=== PATIENT | male | born 1955 | race African-American/Black ===

== ENCOUNTER 2018-04-12 14:59 | Emergency (ER) | payer MEDICAID, MEDICARE ==
[~2018-04-12] VITALS: Ht 182.9 cm; Wt 73.0 kg
[2018-04-12] MEDS ORDERED: CEFTRIAXONE SODIUM 500 MG/VIAL IM ONE (18:45)
[2018-04-12 19:52] VITALS: BP 146/105
== END 2018-04-12 19:55 | disposition home or self-care (01) ==
LOC: ER 14:59
DX: L03.317 Cellulitis of buttock (principal); R00.0 Tachycardia, unspecified; I10 Essential (primary) hypertension; M19.90 Unspecified osteoarthritis, unspecified site; F17.210 Nicotine dependence, cigarettes, uncomplicated; F12.10 Cannabis abuse, uncomplicated; F14.10 Cocaine abuse, uncomplicated
CPT/HCPCS: 96372; 99283; J0696

== ENCOUNTER 2018-08-24 15:35 | Inpatient (IN) | payer MEDICARE, MEDICAID ==
[~2018-08-24] VITALS: Ht 188 cm; Wt 74.8 kg
[2018-08-24] MEDS ORDERED: ONDANSETRON HCL 4MG/2ML INJ IV STA (17:42)
[2018-08-24] MEDS ORDERED: KETOROLAC 30MG/ML VIAL IV STA (17:42)
[2018-08-24] MEDS ORDERED: SODIUM CHLORIDE 0.9% 1,000 ML IV ONE (17:42)
[2018-08-24] MEDS ORDERED: MORPHINE SULFATE 4 MG/ML CPJ (NOT FOR IM USE) IV STA (17:42)
[2018-08-24] MEDS ORDERED: VANCOMYCIN 1 G PREMIX 200 ML IV ONE (17:45)
[2018-08-24] MEDS ORDERED: PIPERACILLIN/TAZ 3.375G PREMIX 50 ML IV ONE (17:45)
[2018-08-24 18:32] LABS: BASOPHILS % 0.9 % (0.0-2.0); EOSINOPHILS % 0.7 % (0.0-5.0); HEMATOCRIT. 47.7 % (42.0-52.0); HEMOGLOBIN. 15.7 g/dL (14.0-18.0); LYMPHOCYTES % 23.9 % (20.0-50.0); MEAN CORPUSCULAR HEMOGLOBIN 33.1 pg (28.0-32.0); MEAN CORPUSCULAR VOLUME 100.7 fL (80.0-94.0); MEAN PLATELET VOLUME 8.1 fl (7.4-10.4); MONOCYTES % 7.9 % (2.0-8.0); NEUTROPHILS % 66.6 % (40.0-76.0); PLATELET 219 x1000/uL (130-400); RED BLOOD CELL COUNT 4.73 mill/uL (4.7-6.1); RED CELL DISTRIBUTION WIDTH 13.3 % (11.6-14.6)
[2018-08-24 18:37] LABS: CHLORIDE 103 mEq/L (98-107)
[2018-08-24 18:39] LABS: PARTIAL THROMBOPLASTIN TIME 29.2 sec (23.4-31.0); PROTHROMBIN TIME 10.7 sec (9.6-11.0)
[2018-08-24 18:41] LABS: ETHANOL BLOOD < 10 mg/dL
[2018-08-24 18:47] LABS: CREATINE KINASE 352 IU/L (39-308)
[2018-08-24 18:49] LABS: CREATINE KINASE MB FRACTION 7.6 ng/mL (0.5-3.6)
[2018-08-24] MEDS ORDERED: ONDANSETRON HCL 4MG/2ML INJ IV ONE (21:00)
[2018-08-24] MEDS ORDERED: MORPHINE SULFATE 4 MG/ML CPJ (NOT FOR IM USE) IV ONE (21:00)
[2018-08-24] MEDS ORDERED: IPRATROPIUM/ALBUTEROL 0.5-3(2.5)MG/3ML NEB INH PRN (22:00)
[2018-08-24] MEDS ORDERED: NA PHOS,M-B/NA PHOS,DI-BA ENEMA 118ML PR PRN (22:00)
[2018-08-24] MEDS ORDERED: LORAZEPAM 2MG/ML CPJ IV PRN (22:00)
[2018-08-24] MEDS ORDERED: MAGNESIUM/ALUMINUM HYDROXIDE/SIMETHICONE 30ML UDC PO PRN (22:00)
[2018-08-24] MEDS ORDERED: HYDRALAZINE 20MG/ML VIAL IV PRN (22:00)
[2018-08-24] MEDS ORDERED: CLONIDINE 0.1MG TABLET PO PRN (22:00)
[2018-08-24] MEDS ORDERED: VANCOMYCIN 1 G PREMIX 200 ML IV SCH ×3 (22:00→23:30)
[2018-08-24] MEDS ORDERED: DOCUSATE SODIUM 100MG CAPSULE PO PRN (22:00)
[2018-08-24] MEDS ORDERED: HYDROCODONE/ACETAMINOPHEN 10/325MG TABLET PO PRN (22:00)
[2018-08-24] MEDS ORDERED: GUAIFENESIN 200MG/10ML SUGAR FREE UDC PO PRN (22:00)
[2018-08-24] MEDS ORDERED: ACETAMINOPHEN 325MG TABLET PO PRN (22:00)
[2018-08-24] MEDS ORDERED: ONDANSETRON HCL 4MG/2ML INJ IV PRN (22:00)
[2018-08-24] MEDS ORDERED: DIPHENHYDRAMINE 50MG/ML VIAL IV PRN (22:00)
[2018-08-24 22:20] VITALS: BP 138/91
[2018-08-24] MEDS ORDERED: HYDRALAZINE 10 MG in SODIUM CHLORIDE 0.9% 49.5 ML IV PRN (22:30)
[2018-08-24] MEDS: HYDROMORPHONE HCL/PF 2MG/ML CPJ IV PRN (23:44)
[2018-08-24] MEDS: ENOXAPARIN 40MG/0.4ML SYR SUBCUT SCH (23:46)
[2018-08-25 00:52] LABS: CREATINE KINASE 256 IU/L (39-308)
[2018-08-25] MEDS: PIPERACILLIN/TAZ 3.375G PREMIX 50 ML IV SCH ×5 (01:01→23:57)
[2018-08-25 04:00] VITALS: BP 104/74
[2018-08-25] MEDS: HYDROMORPHONE HCL/PF 2MG/ML CPJ IV PRN ×8 (05:40→23:56)
[2018-08-25 06:53] LABS: HEMOGLOBIN. 14.5 g/dL (14.0-18.0); MEAN CORPUSCULAR HEMOGLOBIN 33.3 pg (28.0-32.0); MEAN CORPUSCULAR VOLUME 100.8 fL (80.0-94.0); MEAN PLATELET VOLUME 8.7 fl (7.4-10.4); PLATELET 196 x1000/uL (130-400); RED BLOOD CELL COUNT 4.36 mill/uL (4.7-6.1); RED CELL DISTRIBUTION WIDTH 13.1 % (11.6-14.6)
[2018-08-25 07:43] LABS: CHLORIDE 106 mEq/L (98-107)
[2018-08-25 07:52] LABS: CREATINE KINASE 227 IU/L (39-308)
[2018-08-25 07:55] LABS: CREATINE KINASE MB FRACTION 3.9 ng/mL (0.5-3.6)
[2018-08-25 08:00] VITALS: BP 117/75
[2018-08-25] MEDS: ASPIRIN 81MG EC TABLET PO SCH ×2 (09:06→09:42)
[2018-08-25] MEDS: VANCOMYCIN 750 MG PREMIX 150 ML IV SCH ×2 (09:32→17:10)
[2018-08-25 10:32] LABS: PLATELET ESTIMATE NORMAL
[2018-08-25 12:00] VITALS: BP 113/67
[2018-08-25] MEDS: SODIUM CHLORIDE 0.9% INJ 3ML FLUSH IVF SCH ×2 (13:53→20:37)
[2018-08-25 16:00] VITALS: BP 115/72
[2018-08-25 19:53] LABS: *AMPHETAMINES SCREEN URINE NEGATIVE (NEGATIVE)
[2018-08-25 19:54] LABS: *BARBITURATES SCREEN URINE NEGATIVE (NEGATIVE); *BENZODIAZEPINES SCREEN URINE NEGATIVE (NEGATIVE); *COCAINE SCREEN URINE NEGATIVE (NEGATIVE); METHADONE URINE SCREEN NEGATIVE (NEGATIVE); OPIATES URINE SCREEN PRESUMTIVE POSITIVE (NEGATIVE)
[2018-08-25 19:55] LABS: CANNABINOID URINE SCREEN PRESUMTIVE POSITIVE (NEGATIVE); PHENCYCLIDINE URINE SCREEN NEGATIVE (NEGATIVE)
[2018-08-25 20:00] VITALS: BP 150/83
[2018-08-25] MEDS: ENOXAPARIN 40MG/0.4ML SYR SUBCUT SCH (20:35)
[2018-08-26] VITALS: BP 142/78
[2018-08-26] MEDS: HYDROMORPHONE HCL/PF 2MG/ML CPJ IV PRN ×6 (03:29→22:12)
[2018-08-26 04:00] VITALS: BP 132/69
[2018-08-26] MEDS: SODIUM CHLORIDE 0.9% INJ 3ML FLUSH IVF SCH ×3 (05:40→21:34)
[2018-08-26] MEDS: PIPERACILLIN/TAZ 3.375G PREMIX 50 ML IV SCH ×4 (05:40→23:46)
[2018-08-26] MEDS: VANCOMYCIN 750 MG PREMIX 150 ML IV SCH ×2 (05:40→18:29)
[2018-08-26 08:28] VITALS: BP 111/71
[2018-08-26] MEDS: ASPIRIN 81MG EC TABLET PO SCH (09:38)
[2018-08-26 12:04] VITALS: BP 122/82
[2018-08-26 15:46] VITALS: BP 145/72
[2018-08-26 20:00] VITALS: BP 139/83
[2018-08-26] MEDS: ENOXAPARIN 40MG/0.4ML SYR SUBCUT SCH (21:24)
[2018-08-27] VITALS: BP 135/78
[2018-08-27 04:00] VITALS: BP 137/73
[2018-08-27] MEDS: PIPERACILLIN/TAZ 3.375G PREMIX 50 ML IV SCH ×3 (05:25→17:27)
[2018-08-27] MEDS: HYDROMORPHONE HCL/PF 2MG/ML CPJ IV PRN ×5 (05:26→22:07)
[2018-08-27] MEDS: SODIUM CHLORIDE 0.9% INJ 3ML FLUSH IVF SCH ×3 (06:02→22:11)
[2018-08-27] MEDS: VANCOMYCIN 750 MG PREMIX 150 ML IV SCH ×2 (06:06→18:29)
[2018-08-27 08:24] VITALS: BP 119/52
[2018-08-27] MEDS: ASPIRIN 81MG EC TABLET PO SCH (09:22)
[2018-08-27 11:44] VITALS: BP 136/86
[2018-08-27 16:08] VITALS: BP 139/82
[2018-08-27 20:00] VITALS: BP 145/85
[2018-08-27] MEDS: ENOXAPARIN 40MG/0.4ML SYR SUBCUT SCH (20:44)
[2018-08-28] VITALS: BP 129/75
[2018-08-28] MEDS: PIPERACILLIN/TAZ 3.375G PREMIX 50 ML IV SCH ×2 (00:14→05:41)
[2018-08-28] MEDS: HYDROMORPHONE HCL/PF 2MG/ML CPJ IV PRN ×3 (02:53→09:28)
[2018-08-28 04:00] VITALS: BP 106/69
[2018-08-28] MEDS: SODIUM CHLORIDE 0.9% INJ 3ML FLUSH IVF SCH (05:38)
[2018-08-28] MEDS: VANCOMYCIN 750 MG PREMIX 150 ML IV SCH (06:28)
[2018-08-28 07:35] LABS: CHLORIDE 104 mEq/L (98-107)
[2018-08-28 08:00] VITALS: BP 111/60
[2018-08-28] MEDS: ASPIRIN 81MG EC TABLET PO SCH (09:27)
[2018-08-28] MEDS ORDERED: LORAZEPAM 2MG/ML CPJ IM PRN (09:30)
[2018-08-28 10:44] VITALS: BP 125/70
== END 2018-08-28 10:47 | disposition home or self-care (01) | DRG 872 ==
LOC: ER 15:35 → 6EST 20:57 → ENRESERV 21:30
PROVIDERS: ADMIT Internal Medicine; ATTEND Internal Medicine
DX: A41.9 Sepsis, unspecified organism (principal); L03.115 Cellulitis of right lower limb; E87.2 Acidosis; I10 Essential (primary) hypertension; Z96.651 Presence of right artificial knee joint; Z59.0 Homelessness
CPT/HCPCS: 36415; 71045; 73590; 80048; 80202; 80305; 80320; 82550; 82553; 83605; 83880; 84145; 84484; 93970; 96374; 97161; 99285; J1170; J1650; J1885; J2270; J2405; J2543; J3370; J7030; J7050; G0480

== ENCOUNTER 2018-09-20 11:48 | Emergency (ER) | payer MEDICARE, MEDICAID ==
[~2018-09-20] VITALS: Ht 182.9 cm; Wt 77.0 kg
[2018-09-20] MEDS ORDERED: SODIUM CHLORIDE 0.9% 1,000 ML IV ONE (13:32)
[2018-09-20] MEDS ORDERED: ONDANSETRON HCL 4MG/2ML INJ IV STA (13:32)
[2018-09-20] MEDS ORDERED: MORPHINE SULFATE 4 MG/ML CPJ (NOT FOR IM USE) IV STA (13:32)
[2018-09-20 14:24] LABS: BASOPHILS % 0.6 % (0.0-2.0); EOSINOPHILS % 4.1 % (0.0-5.0); HEMATOCRIT. 41.1 % (42.0-52.0); HEMOGLOBIN. 13.5 g/dL (14.0-18.0); LYMPHOCYTES % 38.5 % (20.0-50.0); MEAN CORPUSCULAR HEMOGLOBIN 33.8 pg (28.0-32.0); MEAN CORPUSCULAR VOLUME 102.6 fL (80.0-94.0); MEAN PLATELET VOLUME 7.9 fl (7.4-10.4); MONOCYTES % 9.8 % (2.0-8.0); PLATELET 157 x1000/uL (130-400); RED CELL DISTRIBUTION WIDTH 14.3 % (11.6-14.6)
[2018-09-20 14:27] LABS: CHLORIDE 107 mEq/L (98-107)
[2018-09-20 14:28] LABS: INR 1.1
[2018-09-20] MEDS ORDERED: IOHEXOL-300 100 ML BOTTLE ONE (15:40)
[2018-09-20 15:44] LABS: CLARITY URINE CLEAR (CLEAR); COLOR URINE YELLOW (YELLOW); KETONES URINE NEGATIVE (NEGATIVE); LEUKOCYTE ESTERASE URINE NEGATIVE (NEGATIVE); NITRITE URINE NEGATIVE (NEGATIVE); OCCULT BLOOD URINE TRACE (NEGATIVE); PROTEIN URINE NEGATIVE (NEGATIVE); SPECIFIC GRAVITY URINE 1.024 (1.005-1.030); UROBILINOGEN URINE 0.2 E.U./dL (0.2-1.0)
[2018-09-20 17:43] VITALS: BP 149/97
== END 2018-09-20 17:47 | disposition home or self-care (01) ==
LOC: ER 11:48
DX: K62.5 Hemorrhage of anus and rectum (principal); I10 Essential (primary) hypertension; Z96.659 Presence of unspecified artificial knee joint
CPT/HCPCS: 36415; 74177; 80053; 81003; 83690; 85025; 85610; 86850; 86900; 86901; 96374; 96375; 99284; J2270; J2405; J7030; Q9967

== ENCOUNTER 2018-10-24 13:43 | Inpatient (IN) | payer MEDICARE, MEDICAID ==
[~2018-10-24] VITALS: Ht 182.9 cm; Wt 69.9 kg
[2018-10-24] MEDS ORDERED: SODIUM CHLORIDE 0.9% 1000ML BAG (SEPSIS BOLUS) IV ONE (15:00)
[2018-10-24] MEDS: LEVOFLOXACIN 750MG PREMIX 150 ML IV ONE ×2 (15:06→15:40)
[2018-10-24 15:30] LABS: BASOPHILS % 0.9 % (0.0-2.0); HEMATOCRIT. 49.2 % (42.0-52.0); HEMOGLOBIN. 16.6 g/dL (14.0-18.0); LYMPHOCYTES % 44.2 % (20.0-50.0); MEAN CORPUSCULAR HEMOGLOBIN 33.7 pg (28.0-32.0); MEAN CORPUSCULAR VOLUME 99.7 fL (80.0-94.0); MONOCYTES % 11.7 % (2.0-8.0); NEUTROPHILS % 41.2 % (40.0-76.0); PLATELET 221 x1000/uL (130-400); RED BLOOD CELL COUNT 4.94 mill/uL (4.7-6.1); RED CELL DISTRIBUTION WIDTH 13.2 % (11.6-14.6)
[2018-10-24 15:34] LABS: CHLORIDE 103 mEq/L (98-107)
[2018-10-24 15:40] LABS: PARTIAL THROMBOPLASTIN TIME 26.2 sec (23.4-31.0); PROTHROMBIN TIME 10.2 sec (9.6-11.0)
[2018-10-24 17:11] LABS: CLARITY URINE CLEAR (CLEAR); COLOR URINE YELLOW (YELLOW); KETONES URINE NEGATIVE (NEGATIVE); LEUKOCYTE ESTERASE URINE NEGATIVE (NEGATIVE); NITRITE URINE NEGATIVE (NEGATIVE); OCCULT BLOOD URINE NEGATIVE (NEGATIVE); PROTEIN URINE NEGATIVE (NEGATIVE)
[2018-10-24] MEDS ORDERED: KETOROLAC 15MG/ML VIAL IV ONE (17:30)
[2018-10-24] MEDS ORDERED: GUAIFENESIN 200MG/10ML SUGAR FREE UDC PO PRN (19:45)
[2018-10-24] MEDS ORDERED: ONDANSETRON HCL 4MG/2ML INJ IV PRN (19:45)
[2018-10-24] MEDS ORDERED: HYDROCODONE/ACETAMINOPHEN 5/325MG TABLET PO PRN (19:45)
[2018-10-24] MEDS ORDERED: ACETAMINOPHEN 325MG TABLET PO PRN (19:45)
[2018-10-24] MEDS ORDERED: CLONIDINE 0.1MG TABLET PO PRN (19:45)
[2018-10-24] MEDS ORDERED: DOCUSATE SODIUM 100MG CAPSULE PO PRN (19:45)
[2018-10-24 21:30] VITALS: BP 136/88
[2018-10-24 21:56] VITALS: BP 136/88
[2018-10-24] MEDS ORDERED: PNEUMOCOCCAL 23-VAL P-SAC VAC 0.5 ML IM ONE (23:30)
[2018-10-24] MEDS ORDERED: VANCOMYCIN 1500MG in DEXTROSE 5% WATER 250ML IV NR (23:30)
[2018-10-25] VITALS: BP 128/85
[2018-10-25 04:00] VITALS: BP 126/86
[2018-10-25 07:02] LABS: CHLORIDE 107 mEq/L (98-107)
[2018-10-25 07:08] LABS: HEMATOCRIT. 42.3 % (42.0-52.0); HEMOGLOBIN. 14.2 g/dL (14.0-18.0); MEAN CORPUSCULAR HEMOGLOBIN 33.8 pg (28.0-32.0); MEAN CORPUSCULAR VOLUME 100.5 fL (80.0-94.0); MEAN PLATELET VOLUME 8.3 fl (7.4-10.4); PLATELET 168 x1000/uL (130-400); RED BLOOD CELL COUNT 4.21 mill/uL (4.7-6.1); RED CELL DISTRIBUTION WIDTH 13.2 % (11.6-14.6)
[2018-10-25 08:00] VITALS: BP 139/73
[2018-10-25] MEDS: ENOXAPARIN 40MG/0.4ML SYR SUBCUT SCH (09:47)
[2018-10-25] MEDS: AMLODIPINE 10MG TABLET PO SCH (09:47)
[2018-10-25] MEDS: VANCOMYCIN 1 G PREMIX 200 ML IV SCH ×2 (09:47→20:46)
[2018-10-25 10:19] LABS: PLATELET ESTIMATE NORMAL
[2018-10-25 12:00] VITALS: BP 134/92
[2018-10-25 15:30] VITALS: BP 140/94
[2018-10-25] MEDS ORDERED: KETOROLAC 15MG/ML VIAL IV PRN (16:00)
[2018-10-25 20:00] VITALS: BP 118/81
[2018-10-26] VITALS: BP 121/81
[2018-10-26 04:00] VITALS: BP 125/85
[2018-10-26 06:57] LABS: HEMATOCRIT. 42.5 % (42.0-52.0); HEMOGLOBIN. 14.4 g/dL (14.0-18.0); MEAN CORPUSCULAR HEMOGLOBIN 33.8 pg (28.0-32.0); MEAN CORPUSCULAR VOLUME 99.8 fL (80.0-94.0); MEAN PLATELET VOLUME 8.5 fl (7.4-10.4); PLATELET 184 x1000/uL (130-400); RED BLOOD CELL COUNT 4.26 mill/uL (4.7-6.1); RED CELL DISTRIBUTION WIDTH 12.9 % (11.6-14.6)
[2018-10-26 07:07] LABS: CHLORIDE 105 mEq/L (98-107)
[2018-10-26 08:00] VITALS: BP 132/86
[2018-10-26] MEDS: ENOXAPARIN 40MG/0.4ML SYR SUBCUT SCH (08:39)
[2018-10-26] MEDS: VANCOMYCIN 1 G PREMIX 200 ML IV SCH (08:40)
[2018-10-26] MEDS: AMLODIPINE 10MG TABLET PO SCH (08:40)
[2018-10-26 10:10] LABS: PLATELET ESTIMATE NORMAL
[2018-10-26 11:20] VITALS: BP 132/86
== END 2018-10-26 12:25 | disposition home or self-care (01) | DRG 603 ==
LOC: ER 13:43 → 8WST 17:15 → ENRESERV 20:18
PROVIDERS: ADMIT Hospitalist; ATTEND Hospitalist
DX: L03.115 Cellulitis of right lower limb (principal); Z96.651 Presence of right artificial knee joint; Z59.0 Homelessness; I10 Essential (primary) hypertension; G89.4 Chronic pain syndrome
CPT/HCPCS: 36415; 71045; 80048; 80202; 81003; 83605; 84145; 84484; 90732; 93005; 93970; 96361; 96374; 99285; J1650; J1885; J1956; J3370; J7030; J7060